=== PATIENT | female | born 1970 ===

== ENCOUNTER 2020-11-02 19:55 | Outpatient (CLI) | payer OTHER | END 2020-11-02 19:57 | disposition home or self-care (01) | LOC: PPH VACUNA 19:55 | DX: Z23 Encounter for immunization (principal) ==

== ENCOUNTER → 2020-11-23 16:25 | Outpatient (CLI) | payer OTHER | END | disposition home or self-care (01) | LOC: PPH VACUNA 16:25 | DX: Z23 Encounter for immunization (principal) ==